=== PATIENT | male | born 1970 | race Caucasian/White ===

== ENCOUNTER → 2016-11-03 | Outpatient (REF) | payer BC ==
[~2016-11-03] MED LIST: ACET500C OR; ADVIL PO; CETI10TA OR; IBUP400T PO; LORA1TAB OR; MAALSUS OR; OMEP20TA7 OR; PENI500T OR; TRAM50TA2 OR; TUMS500C OR
[2016-11-03 14:26] LABS: INR 1.06
[2016-11-05 14:44] LABS: FACTOR 8 RISTOCETIN COFACTOR 15 % (50-200); FACTOR VIII ACTIVITY 28 % (57-163)
== END ==
LOC: M LAB REF 13:10
DX: D68.0 Von Willebrand disease (principal)

== ENCOUNTER → 2016-11-04 | Outpatient (REF) | payer BC ==
[2016-11-04 14:03] LABS: PERCENT SATURATION 36.6 % (19.7-37.4)
== END ==
LOC: M LAB REF 12:51
DX: R53.83 Other fatigue (principal)

== ENCOUNTER 2019-01-22 10:52 | Emergency (ER) | payer BC ==
[~2019-01-22] VITALS: Ht 182.9 cm; Wt 95.5 kg
[2019-01-22] MEDS ORDERED: SERT-155 PO (14:17)
[2019-01-22] MEDS ORDERED: ZANA4CAP PO (15:34)
--- NOTE | 2019-01-22 15:58 | REP ---
LUMBAR SPINE, THREE VIEWS: HISTORY: Trauma. There is no acute fracture or subluxation. The L4-5 intervertebral disc is decreased in height consistent with disc degeneration. IMPRESSION: Degenerative change as described above. Electronically Signed by Matt Short MD 01/22/2019 03:59 P
--- NOTE | 2019-01-22 15:59 | REP ---
THORACIC SPINE, THREE VIEWS: HISTORY: Trauma. There is no acute fracture or subluxation. There intervertebral discs are normal in height. IMPRESSION: There is no acute fracture or subluxation. Electronically Signed by Matt Short MD 01/22/2019 04:02 P
[2019-01-22 16:06] VITALS: BP 145/87
--- NOTE | 2019-01-22 16:16 | REP ---
UNILATERAL RIGHT RIBS, PA CHEST, FIVE VIEWS: HISTORY: Trauma. COMPARISON: 03/03/2011 The lungs are clear. The heart is normal in size. The pulmonary vasculature is normal in appearance. The bony structure is intact. IMPRESSION: No acute disease. Electronically Signed by Matt Short MD 01/22/2019 04:21 P
== END 2019-01-22 16:08 | disposition home or self-care (01) ==
LOC: M ED 10:52
DX: M54.5 Low back pain (principal); M54.6 Pain in thoracic spine; R07.89 Other chest pain; K21.9 Gastro-esophageal reflux disease without esophagitis; E78.00 Pure hypercholesterolemia, unspecified; D68.0 Von Willebrand disease; F41.9 Anxiety disorder, unspecified; Z79.899 Other long term (current) drug therapy; Z88.8 Allergy status to other drugs, medicaments and biological substances

== ENCOUNTER → 2022-10-19 | Outpatient (CLI) | payer BC ==
[~2022-10-19] MED LIST changes: +SERT50TA29 PO; +ZANA4CAP PO
== END ==
LOC: M PLALAB 14:26
PROVIDERS: ATTEND Physician Assistant
DX: R97.20 Elevated prostate specific antigen [PSA] (principal)

== ENCOUNTER → 2023-01-16 | Outpatient (CLI) | payer BC | LOC: M PLALAB 14:05 | PROVIDERS: ATTEND Physician Assistant | DX: R97.20 Elevated prostate specific antigen [PSA] (principal) ==

== ENCOUNTER → 2023-10-31 | Outpatient (CLI) | payer BC, SELFPAY | LOC: M PLALAB 09:24 | PROVIDERS: ATTEND Physician Assistant | DX: R97.20 Elevated prostate specific antigen [PSA] (principal) ==

== ENCOUNTER 2024-07-10 06:00 | Emergency (ER) | payer BC, SELFPAY ==
[~2024-07-10] VITALS: Ht 182.9 cm; Wt 94.5 kg
[2024-07-10] MEDS ORDERED: CYCL-707 PO (06:13)
[2024-07-10] MEDS ORDERED: LIDO5DIS41 TOP (08:31)
[2024-07-10] MEDS ORDERED: VALI5TAB PO (08:31)
[2024-07-10] MEDS ORDERED: MEDR4PAK PO (08:31)
[2024-07-10] MEDS: LIDOCAINE 5% (LIDODERM) PATCH TD ONE (08:35)
[2024-07-10 08:36] VITALS: BP 132/85; TEMP 97.5; O2SAT 98
== END 2024-07-10 08:44 | disposition home or self-care (01) ==
LOC: M ED 06:00
DX: S39.012A Strain of muscle, fascia and tendon of lower back, initial encounter (principal); F41.9 Anxiety disorder, unspecified; K21.9 Gastro-esophageal reflux disease without esophagitis; E78.5 Hyperlipidemia, unspecified; Z88.6 Allergy status to analgesic agent; Z79.899 Other long term (current) drug therapy; Y92.9 Unspecified place or not applicable; Y93.89 Activity, other specified; Y99.9 Unspecified external cause status

== ENCOUNTER → 2024-11-15 | Outpatient (REF) | payer BC ==
[~2024-11-15] MED LIST changes: +CYCL-707 PO; +LIDO5DIS41 TOP; +MEDR4PAK PO; +VALI5TAB PO
== END ==
LOC: M LAB REF 13:20
PROVIDERS: ATTEND Physician Assistant Medical
DX: R19.7 Diarrhea, unspecified (principal)